=== PATIENT | female | born 1955 | race Caucasian/White ===

== ENCOUNTER 2019-04-14 12:23 | Inpatient (IN) ==
[2019-04-14] MEDS ORDERED: Ipratropium/Albuterol Neb 3 ML IH ONE (12:29)
[2019-04-14] MEDS ORDERED: methylPREDNISolone 125 MG/2 ML VIAL IVP ONE (12:29)
[2019-04-14] MEDS ORDERED: Azithromycin 500 MG in 0.9 % Sodium Chloride 250 ML IVPB ONE (13:06)
[2019-04-14] MEDS ORDERED: cefTRIAXone 1,000 MG in Water for inj. (sterile) 10 ML IVP ONE (13:07)
[2019-04-14 13:19] LABS: Hemoglobin 17.9 g/dL (11.5-15.4); White Blood Count 9.3 K/mcL (4.3-11.1)
[2019-04-14 13:32] LABS: Basophils # 0.1 K/mcL (0.0-0.2); Basophils % 0.8 %; Eosinophils # 0.1 K/mcL (0.0-0.6); Eosinophils % 0.9 %; Hematocrit 54.6 % (35.3-44.9); Immature Granulocytes % 0.3 % (0-4); Immature Platelets 2.7 % (1.1-6.1); Lymphocytes # 2.1 K/mcL (0.6-4.6); Lymphocytes % 22.7 %; Mean Corpuscular HGB Conc 32.8 g/dL (31.6-35.5); Mean Corpuscular Hemoglobin 29.7 pg (28.0-33.3); Mean Corpuscular Volume 90.7 fL (83.0-100.0); Mean Platelet Volume 9.5 fL (9.4-12.4); Monocytes # 0.5 K/mcL (0.0-1.3); Monocytes % 5.6 %; Neutrophils # 6.5 K/mcL (1.6-8.9); Platelet Count 349 K/mcL (140-400); Red Blood Count 6.02 M/mcL (3.82-4.97); Red Cell Distribution Width 13.3 % (11.5-14.5); Segmented Neutrophils % 69.7 %
[2019-04-14 13:48] LABS: BUN/Creatinine Ratio 12 (6-26); Blood Urea Nitrogen 8 mg/dL (8-23); Calcium 10.1 mg/dL (8.6-10.3); Carbon Dioxide 34 mEq/L (23-29); Chloride 96 mEq/L (98-107); Glucose 142 mg/dL (70-105); Osmolality,Calculated 291 (280-300); Platelet Estimate Normal (Normal); Potassium 3.2 mEq/L (3.5-5.1); Sodium 140 mEq/L (136-145); Troponin I < 0.03 ng/mL (< 0.04); eGFR For African Americans > 60 (> 60); eGFR For Non-African Americans > 60 (> 60)
[2019-04-14] MEDS ORDERED: Naloxone 0.4 MG/ML INJ IVP PRN (15:59)
[2019-04-14] MEDS ORDERED: Dextrose Gel 15 GM/37.5 ML TUBE PO PRN ×2 (15:59)
[2019-04-14] MEDS ORDERED: *HR* Dextrose 50 % in Water (Syg) 50 ML SYRINGE IVP PRN (15:59)
[2019-04-14] MEDS ORDERED: D5% in Water 1,000 ML IVC PRN (15:59)
[2019-04-14] MEDS ORDERED: Albuterol 2.5 MG/3 ML NEBULIZER IH PRN (16:12)
[2019-04-14] MEDS: Ipratropium/Albuterol Neb 3 ML IH SCH ×3 (16:23→23:44)
[2019-04-14 17:19] LABS: Estimated Average Glucose 166 mg/dl
[2019-04-14] MEDS: Pantoprazole 40 MG VIAL IVP SCH (17:45)
[2019-04-14] MEDS: Insulin LISPRO 300 UNITS/3 ML VIAL SQ SCH ×2 (17:46→23:05)
[2019-04-14] MEDS: Nicotine 14 MG PATCH.TD24 TD SCH (18:19)
[2019-04-14] MEDS: Budesonide/Formoterol 80/4.5 1 PUFF INH IH SCH (20:18)
[2019-04-14] MEDS: Gabapentin 300 MG CAPSULE PO SCH (20:37)
[2019-04-14] MEDS: *HR* Heparin 5,000 UNIT/ML VIAL SQ SCH (20:38)
[2019-04-14] MEDS: methylPREDNISolone 125 MG/2 ML VIAL IVP SCH (23:10)
[2019-04-15 02:02] LABS: VBG HCO3 29 mEq/L (21-27); VBG PCO2 50 mmHg (41-51); VBG PH 7.37 pH Units (7.32-7.42); VBG PO2 70 mmHg (25-50)
[2019-04-15 02:14] LABS: Alanine Aminotransferase 11 Units/L (7-52); Albumin 4.4 g/dL (3.5-5.7); Albumin/Globulin Ratio 1.6 (1.1-2.2); Alkaline Phosphatase 78 Units/L (34-104); Aspartate Amino Transferase 9 Units/L (13-39); BUN/Creatinine Ratio 13 (6-26); Bilirubin,Total 0.4 mg/dL (0.3-1.0); Blood Urea Nitrogen 10 mg/dL (8-23); Calcium 9.6 mg/dL (8.6-10.3); Carbon Dioxide 28 mEq/L (23-29); Chloride 97 mEq/L (98-107); Globulin 2.8 g/dL (2.4-3.5); Glucose 329 mg/dL (70-105); Magnesium 1.9 mg/dL (1.6-2.6); Osmolality,Calculated 296 (280-300); Phosphorous 2.7 mg/dL (2.7-4.5); Potassium 3.5 mEq/L (3.5-5.1); Sodium 137 mEq/L (136-145); Total Protein 7.2 g/dL (6.4-8.9); eGFR For African Americans > 60 (> 60); eGFR For Non-African Americans > 60 (> 60)
[2019-04-15 02:26] LABS: Basophils % 0.1 %; Hematocrit 46.7 % (35.3-44.9); Immature Granulocytes % 0.4 % (0-4); Lymphocytes # 0.6 K/mcL (0.6-4.6); Lymphocytes % 8.5 %; Mean Corpuscular HGB Conc 32.8 g/dL (31.6-35.5); Mean Corpuscular Hemoglobin 29.5 pg (28.0-33.3); Mean Platelet Volume 9.4 fL (9.4-12.4); Monocytes # 0.1 K/mcL (0.0-1.3); Monocytes % 0.9 %; Neutrophils # 6.8 K/mcL (1.6-8.9); Platelet Count 343 K/mcL (140-400); Red Blood Count 5.19 M/mcL (3.82-4.97); Red Cell Distribution Width 13.3 % (11.5-14.5); Segmented Neutrophils % 90.1 %; White Blood Count 7.5 K/mcL (4.3-11.1)
[2019-04-15 02:33] LABS: Hemoglobin 15.3 g/dL (11.5-15.4)
[2019-04-15] MEDS: Ipratropium/Albuterol Neb 3 ML IH SCH ×5 (04:27→20:24)
[2019-04-15] MEDS: Pantoprazole 40 MG VIAL IVP SCH (05:05)
[2019-04-15] MEDS: *HR* Heparin 5,000 UNIT/ML VIAL SQ SCH ×3 (05:05→21:16)
[2019-04-15] MEDS: Budesonide/Formoterol 80/4.5 1 PUFF INH IH SCH ×2 (07:36→20:24)
[2019-04-15] MEDS: Insulin LISPRO 300 UNITS/3 ML VIAL SQ SCH ×4 (08:27→21:19)
[2019-04-15] MEDS: methylPREDNISolone 125 MG/2 ML VIAL IVP SCH (08:28)
[2019-04-15] MEDS: Nicotine 14 MG PATCH.TD24 TD SCH (08:28)
[2019-04-15] MEDS: Gabapentin 300 MG CAPSULE PO SCH ×3 (08:28→21:17)
[2019-04-15] MEDS: MethylPREDNISolone 40 MG/ML VIAL IVP SCH (16:20)
[2019-04-15] MEDS: Acetaminophen 325 MG TABLET PO PRN (17:00)
[2019-04-16] MEDS: Ipratropium/Albuterol Neb 3 ML IH SCH ×7 (00:21→23:15)
[2019-04-16] MEDS: Acetaminophen 325 MG TABLET PO PRN ×3 (04:13→21:23)
[2019-04-16] MEDS: *HR* Heparin 5,000 UNIT/ML VIAL SQ SCH ×3 (06:06→20:58)
[2019-04-16] MEDS: MethylPREDNISolone 40 MG/ML VIAL IVP SCH (06:06)
[2019-04-16 07:18] LABS: Basophils % 0.1 %; Hematocrit 45.7 % (35.3-44.9); Hemoglobin 14.7 g/dL (11.5-15.4); Immature Granulocytes % 0.6 % (0-4); Lymphocytes # 1.6 K/mcL (0.6-4.6); Lymphocytes % 8.3 %; Mean Corpuscular HGB Conc 32.2 g/dL (31.6-35.5); Mean Corpuscular Hemoglobin 29.5 pg (28.0-33.3); Mean Corpuscular Volume 91.8 fL (83.0-100.0); Mean Platelet Volume 9.4 fL (9.4-12.4); Monocytes # 1.2 K/mcL (0.0-1.3); Monocytes % 6.3 %; Platelet Count 337 K/mcL (140-400); Red Blood Count 4.98 M/mcL (3.82-4.97); Red Cell Distribution Width 13.6 % (11.5-14.5); Segmented Neutrophils % 84.7 %
[2019-04-16 07:19] LABS: Neutrophils # 16.4 K/mcL (1.6-8.9); White Blood Count 19.4 K/mcL (4.3-11.1)
[2019-04-16] MEDS: Budesonide/Formoterol 80/4.5 1 PUFF INH IH SCH ×2 (07:38→20:29)
[2019-04-16 07:40] LABS: BUN/Creatinine Ratio 21 (6-26); Blood Urea Nitrogen 14 mg/dL (8-23); Calcium 9.6 mg/dL (8.6-10.3); Carbon Dioxide 30 mEq/L (23-29); Chloride 99 mEq/L (98-107); Glucose 180 mg/dL (70-105); Osmolality,Calculated 293 (280-300); Potassium 3.3 mEq/L (3.5-5.1); Sodium 139 mEq/L (136-145); eGFR For African Americans > 60 (> 60); eGFR For Non-African Americans > 60 (> 60)
[2019-04-16] MEDS: Gabapentin 300 MG CAPSULE PO SCH ×3 (09:11→21:00)
[2019-04-16] MEDS: Insulin LISPRO 300 UNITS/3 ML VIAL SQ SCH ×4 (09:12→20:57)
[2019-04-16] MEDS: Nicotine 14 MG PATCH.TD24 TD SCH (09:12)
[2019-04-16 11:47] LABS: White Blood Count 17.8 K/mcL (4.3-11.1)
[2019-04-16 11:48] LABS: Basophils % 0.1 %; Hematocrit 45.7 % (35.3-44.9); Hemoglobin 14.8 g/dL (11.5-15.4); Immature Granulocytes % 0.9 % (0-4); Lymphocytes # 0.8 K/mcL (0.6-4.6); Lymphocytes % 4.3 %; Mean Corpuscular HGB Conc 32.4 g/dL (31.6-35.5); Mean Corpuscular Hemoglobin 29.6 pg (28.0-33.3); Mean Corpuscular Volume 91.4 fL (83.0-100.0); Mean Platelet Volume 9.3 fL (9.4-12.4); Monocytes # 0.3 K/mcL (0.0-1.3); Monocytes % 1.9 %; Neutrophils # 16.5 K/mcL (1.6-8.9); Platelet Count 333 K/mcL (140-400); Red Cell Distribution Width 13.8 % (11.5-14.5); Segmented Neutrophils % 92.8 %
[2019-04-16] MEDS: *HR* Metformin 500 MG TABLET PO SCH (16:12)
[2019-04-16] MEDS ORDERED: Melatonin 3 MG TABLET PO SCH (21:00)
[2019-04-17] MEDS: Ipratropium/Albuterol Neb 3 ML IH SCH ×2 (03:45→07:55)
[2019-04-17] MEDS: *HR* Heparin 5,000 UNIT/ML VIAL SQ SCH ×2 (04:58→09:13)
[2019-04-17 05:36] LABS: Basophils % 0.1 %; Eosinophils % 0.1 %; Hematocrit 45.9 % (35.3-44.9); Hemoglobin 14.7 g/dL (11.5-15.4); Immature Granulocytes % 0.4 % (0-4); Lymphocytes # 2.6 K/mcL (0.6-4.6); Lymphocytes % 18.9 %; Mean Corpuscular Volume 93.7 fL (83.0-100.0); Mean Platelet Volume 9.3 fL (9.4-12.4); Monocytes % 6.9 %; Neutrophils # 10.1 K/mcL (1.6-8.9); Platelet Count 284 K/mcL (140-400); Red Cell Distribution Width 13.9 % (11.5-14.5); Segmented Neutrophils % 73.6 %; White Blood Count 13.7 K/mcL (4.3-11.1)
[2019-04-17] MEDS: Budesonide/Formoterol 80/4.5 1 PUFF INH IH SCH (07:55)
[2019-04-17 07:58] VITALS: BP 132/79
[2019-04-17] MEDS ORDERED: Aspirin 325 MG TABLET PO SCH (09:00)
[2019-04-17] MEDS ORDERED: MethylPREDNISolone 40 MG/ML VIAL IVP SCH (09:00)
[2019-04-17] MEDS: Insulin LISPRO 300 UNITS/3 ML VIAL SQ SCH (09:11)
[2019-04-17] MEDS: Gabapentin 300 MG CAPSULE PO SCH (09:12)
[2019-04-17] MEDS: Acetaminophen 325 MG TABLET PO PRN (09:12)
[2019-04-17] MEDS: *HR* Metformin 500 MG TABLET PO SCH (09:12)
[2019-04-17] MEDS: Nicotine 14 MG PATCH.TD24 TD SCH (09:13)
== END 2019-04-17 11:34 | disposition home health service (06) | DRG 191 ==
LOC: EMEROOARM 12:23 → 2ANU 12:23 → SUATTDRO 14:45 → 2ANU 16:57
PROVIDERS: ADMIT Internal Medicine; ATTEND Internal Medicine